=== PATIENT | male | born 1980 | race Caucasian/White ===

== ENCOUNTER 2023-09-02 08:51 | Outpatient (OUT) | payer OTHER, SELFPAY ==
--- NOTE | 2023-09-02 09:09 | XR_ITS ---
The [address] [address] Patient Name: ROBERTO WADSWORTH MRN: [id number] date: 1980 Sex: M Assigned Patient Location: [facility] Current Patient Location: Accession/Order Number: [id number] Exam Date: 09/02/2023 09:18 Report Date: 09/03/2023 07:40 At the request of: NON-STAFF PHYSICIAN Procedure: XR lumbar spine 2-3V EXAMINATION: XR lumbar spine 2-3V HISTORY: Lumbar Spondylosis M47.816 COMPARISON: No relevant comparison available. FINDINGS: BONES: Normal alignment with no acute fracture or spondylolisthesis. Mild degenerative spondylosis. Moderate facet osteoarthropathy DISC SPACES: Moderate multilevel disc space narrowing with endplate sclerosis most significant L4-S1 PARASPINOUS: Negative. No paraspinous abnormality is seen. OTHER: Negative. XR/XR lumbar spine 2-3V IMPRESSION: Moderate degenerative changes Electronically authenticated by: MYRA BIANCHI Date: 09/03/2023 07:40
--- NOTE | 2023-09-02 09:09 | XR_ITS ---
[place] [id number] Patient Name: ROBERTO WADSWORTH MRN: [id number] date: 1980 Sex: M Assigned Patient Location: RAD Current Patient Location: [facility] Accession/Order Number: [id number] Exam Date: 09/02/2023 09:18 Report Date: 09/02/2023 15:29 At the request of: NON-STAFF PHYSICIAN Procedure: XR thoracic spine 2V Three views of the thoracic spine INDICATION: Pain COMPARISON: None XR/XR thoracic spine 2V IMPRESSION: Minimal multilevel degenerative changes of the thoracic spine without evidence for acute fracture or subluxation. Soft tissues grossly unremarkable. Electronically authenticated by: RADHA LEAL Date: 09/02/2023 15:29
== END 2023-09-02 08:52 | disposition home or self-care (01) ==
DX: M51.34 Other intervertebral disc degeneration, thoracic region (principal); M47.816 Spondylosis without myelopathy or radiculopathy, lumbar region
CPT/HCPCS: 72070; 72100